=== PATIENT | male | born 1950 | race Caucasian/White ===

== ENCOUNTER → 2017-07-05 | Outpatient (REF) | payer MEDICARE, MEDICAID ==
[~2017-07-05] MED LIST: /AMLO25TA OR; /OXYC15TA PO; /THIA10TA PO; AMLO2.5T PO; ASCO25TA PO; ATEN50TA2 PO; ATOR1TAB21 PO; B12-1CHW PO; CALC-190 PO; CALCIUM CITRAT PO; CARD120T6 PO; COZA100T2 PO; COZA50TA18 PO; DEXA1TA PO; DOCU10CA PO; FERR325T3 PO; FERROUS SULFATE PO; FLEXERIL PO; FLON0.054; FOLI1TAB PO; FOLI1TAB4 PO; FURO20TA2 PO; GABA100C PO; IMIT100T OR; IRON28TA PO; KEPP10002 PO; LIDO1DIS2 TD; LIDO5DIS41 TD; LOSA100T36 PO; MAGN1TAB25 PO; MAGN400C2 PO; MAGN400T5 PO; MELO15TA4 PO; METH75TA PO; MOBI15TA PO; MOME50SP; MORP1TAB20 PO; MORP30TA4 PO; MORP30TASA PO; NORV2TAB PO; OMEP20CA3 PO; OMEP20TA PO; OXYC15TA50 PO; OXYCPOW PO; PERC5TAB12 PO; PERC5TAB8 OR; PRIL40CA PO; REGL10TA6 PO; ROBA500T PO; ROBA750T4 PO; SERT50TA PO; SERT50TA2 PO; SIMV10TA2 PO; SIMV20TA2 PO; THIA50CA PO; TIZA4CAP3 PO; TYLE325T5 PO; VESICARE PO; VIT D PO; VITA100T PO; VITA100T60 PO; XANA0.25 OR; XANA0.25 PO; ZYRT10CA PO; [UNRECOGNIZED DRUG - OTHER] PO; atrovastatin PO; flexeril PO; lidocaine patch TOP
[2017-07-05 09:25] LABS: MEAN CORPUSCULAR HEMOGLOBIN 31.3 pg (27.0-33.0); MEAN CORPUSCULAR HGB CONC 33.9 g/dl (32.0-36.5); MEAN CORPUSCULAR VOLUME 92.4 fl (80.0-96.0); RED CELL DISTRIBUTION WIDTH 14.5 % (11.5-14.5); WHITE BLOOD COUNT 9.6 K/mm3 (4.0-10.0)
[2017-07-05 09:39] LABS: ALBUMIN 2.6 GM/DL (3.2-5.2); ALBUMIN/GLOBULIN RATIO 0.76 (1.00-1.93); ALKALINE PHOSPHATASE 112 U/L (45-117); ALT/SGPT 37 U/L (12-78); ANION GAP 10 MEQ/L (8-16); AST/SGOT 20 U/L (15-37); BILIRUBIN,TOTAL 0.2 MG/DL (0.2-1.0); BLOOD UREA NITROGEN 16 MG/DL (7-18); CALCIUM LEVEL 8.7 MG/DL (8.8-10.2); CARBON DIOXIDE LEVEL 27 MEQ/L (21-32); CHLORIDE LEVEL 106 MEQ/L (98-107); CREATININE FOR GFR 0.88 MG/DL (0.70-1.30); GLOMERULAR FILTRATION RATE > 60.0 (>49); GLUCOSE, FASTING 74 MG/DL (80-110); POTASSIUM SERUM 4.1 MEQ/L (3.5-5.1); SODIUM LEVEL 143 MEQ/L (136-145)
--- NOTE | 2017-07-05 19:41 | ECGEPIP ---
Stationary ECG Study [facility] Test Date: 2017-07-05 Pat Name: KIMANI MCDOWELL Department: Room: - Gender: M [employer]: MÓNICA : 1950 Requested By: KATHERIN Cameron Order Number: [id number] Reading MD: Rian Sanabria Measurements Intervals [place] Rate: 71 P: 44 MN: 177 QRS: 66 QRSD: 145 T: 36 QT: 427 QTc: 467 Interpretive Statements Normal sinus rhythm Low QRS complex voltage in the limb leads Right bundle branch block Compared to prior tracing of 04/17/2015, QRS voltage has dropped Electronically Signed On 07-05-2017 19:41:11 EDT by Rian Sanabria
== END ==
LOC: SKLAB5 08:43
PROVIDERS: ATTEND Internal Medicine
DX: D64.9 Anemia, unspecified (principal); I10 Essential (primary) hypertension; R56.9 Unspecified convulsions; M81.0 Age-related osteoporosis without current pathological fracture; E03.9 Hypothyroidism, unspecified

== ENCOUNTER → 2017-09-20 | Outpatient (REF) | payer MEDICARE, MEDICAID ==
[2017-09-20 09:12] LABS: MEAN CORPUSCULAR HEMOGLOBIN 30.8 pg (27.0-33.0); MEAN CORPUSCULAR HGB CONC 33.7 g/dl (32.0-36.5); MEAN CORPUSCULAR VOLUME 91.3 fl (80.0-96.0); PLATELET COUNT, AUTOMATED 464 10^3/uL (150-450); WHITE BLOOD COUNT 7.9 10^3/uL (4.0-10.0)
== END ==
LOC: SKLAB5 07:52
PROVIDERS: ATTEND Internal Medicine
DX: D64.9 Anemia, unspecified (principal); E03.9 Hypothyroidism, unspecified

== ENCOUNTER → 2017-09-24 | Outpatient (REF) | payer MEDICARE, MEDICAID ==
[2017-09-24 09:38] LABS: MEAN CORPUSCULAR HEMOGLOBIN 30.9 pg (27.0-33.0); MEAN CORPUSCULAR HGB CONC 34.3 g/dl (32.0-36.5); MEAN CORPUSCULAR VOLUME 90.1 fl (80.0-96.0); PLATELET COUNT, AUTOMATED 520 10^3/uL (150-450); RED CELL DISTRIBUTION WIDTH 14.1 % (11.5-14.5); WHITE BLOOD COUNT 7.5 10^3/uL (4.0-10.0)
[2017-09-24 10:06] LABS: ERYTHROCYTE SEDIMENTATION RATE 41 mm/hr (0-20)
== END ==
LOC: SKLAB5 07:13
PROVIDERS: ATTEND Internal Medicine
DX: M10.9 Gout, unspecified (principal)